=== PATIENT | male | born 1945 | race African-American/Black ===

== ENCOUNTER 2016-09-03 09:14 | Emergency (ER) | payer OTHER | END 2016-09-03 14:14 | disposition home or self-care (01) | LOC: ER1 09:14 | DX: T78.40XA Allergy, unspecified, initial encounter (principal); X58.XXXA Exposure to other specified factors, initial encounter | CPT/HCPCS: 82962; 96374; 96375; 99283; J1200; J2930 ==

== ENCOUNTER → 2020-08-23 | Outpatient (CLI) | payer OTHER ==
[~2020-08-23] MED LIST: ALTACE10 MG PO; ECOTRIN81 MG PO; GLUCOPHAGE500 MG PO; HYGROTON TAB 2525 MG PO; JANUVIA100 MG PO; LIPITOR TAB 2020 MG PO; MELOXICAM15 MG PO; OMEPRAZOLE20 M1 PO
== END ==
LOC: RAD 11:48
DX: M54.16 Radiculopathy, lumbar region (principal); M47.816 Spondylosis without myelopathy or radiculopathy, lumbar region
CPT/HCPCS: 72100

== ENCOUNTER → 2021-05-02 | Outpatient (CLI) | payer OTHER | LOC: EMI 08:00 | DX: M50.03 Cervical disc disorder with myelopathy, cervicothoracic region (principal); M47.10 Other spondylosis with myelopathy, site unspecified | CPT/HCPCS: 72141 ==

== ENCOUNTER 2021-10-04 21:52 | Inpatient (IN) | payer OTHER ==
[~2021-10-04] VITALS: Ht 185.4 cm; Wt 99.8 kg
[2021-10-04 22:33] LABS: HEMOGLOBIN 10.6 gm/dl (14.0-17.5); RED BLOOD COUNT 4.73 M/UL (4.20-5.50); WHITE BLOOD COUNT 7.8 K/UL (4.5-11.0)
[2021-10-05 08:09] LABS: HEMOGLOBIN 10.8 gm/dl (14.0-17.5); RED BLOOD COUNT 4.88 M/UL (4.20-5.50)
[2021-10-05 08:14] LABS: WHITE BLOOD COUNT 5.8 K/UL (4.5-11.0)
[2021-10-05] MEDS ORDERED: NAMENDA 5 MG TAB5 MG PO (13:04)
--- NOTE | 2021-10-06 | NUR ---
AT 2114 I WALKED OUT OF ANOTHER PTS ROOM TO SEE NATHALIA AND SECURITY OUTSIDE IN THE HALLWAY. ONCE I APPROACHED THEM, NATHALIA INFORMED ME THAT THE PT HAD FELL FORWARD AFTER THE PT SHOVED HIM. THE VITAL SIGNS WERE TAKING AND THE PT WAS SAT IN A CHAIR WITH GRIFFIN HOLDING PRESSURE ON HIS LACERATION TO HIS EYEBROW. I CALLED DR. BARILLAS AT 2118 TO INFORM HER OF THE SITUATION. SHE INFORMED ME THAT SHE WAS DOWNSTAIRS AND WOULD BE UPSTAIRS SHORTLY. ONCE SHE ARRIVED, SHE EXAMINED THE PATIENT AND WE DIRECTED HIM BACK TO HIS ROOM AND TO THE BED. ONCE THE PT WAS IN BED, DR. BARILLAS USED DERMABOND TO SEAL THE WOUND SHUT, THEN FURTHER EXAMINED THE PT TO SEE IF HE WAS HURT ANYWHERE ELSE. DURING THE FALL THE PT GLASSES WERE ON. ONCE HE FELL, WE ASSUME HIS GLASSES HIT THE FLOOR. IT BROKE THE HENDGE OF HIS GLASSES, WELL CRACKED THE LENSE ON ONE SIDE OF THE GLASSES. DR. BARILLAS HAD NO FURTHER ORDERS ON THE PT AT THIS TIME.
--- NOTE | 2021-10-06 00:12 | NUR ---
AT 2200 I ATTEMPTED TO PUT THE PT IN FALL PRECAUTIONS. PT REFUSES TO GET BACK IN BED AND TO WEAR A YELLOW GOWN. PT STILL HAS A SITTER AT THE BEDSIDE.
--- NOTE | 2021-10-06 06:12 | NUR ---
AT 0550 THE PATIENT BEGAN TO ACT HOSTILE. HE IS CONFUSED AND CANNOT BE REORIENTED AFTER MULTIPLE TRIES. THE PATIENT BELIEVES HE IS AT HOME AND TRIES TO WALK FREELY AROUND THE HOSPITAL HALLWAYS. THE NURSE WELL ANOTHER NURSE AND TECHS HAVE ATTEMPTED TO REDIRECT HIM TO HIS ROOM BUT THE PATIENT REFUSES. A CODE CJ WAS CALLED AT 0600 THE PATIENT BEGAN TO ACT MORE HOSTILE BY PUSHING THE SECURITY GAURD AND TECH. ONCE THE KARLI CORONA WAS ANNOUNCED, I CALLED DR. BARILLAS TO INFORM HER OF THE PATIENT CONDITION. SHE ORDERED 0.5MG OF ATIVAN IM ONCE. THE MEDICATION WAS ADMINISTERED AT 0610. THE PATIENT IS STILL PACING THE ROOM AND IS ACTING AGITATED. SECURITY IS PRESENT OUTSIDE THE ROOM.
--- NOTE | 2021-10-06 07:34 | NUR ---
PT BEING NON COMPLIANT AND VIOLANT AND AGGRESSIVE TOWARD STAFF. ORDER OBTAINED FROM DR. PEÑA FOR RESTRAINTS, RESTRAINTS APPLIED TO BOTH WRIST.
--- NOTE | 2021-10-06 10:09 | NUR ---
PERSONELL ITEMS PLACED IN BAGS WITH PT LABEL ABD PLACED IN MED ROOM. AKK ITEMS REMOVED FOR PT SAFTEY
--- NOTE | 2021-10-06 12:01 | NUR ---
LATE ENTRY FROM 1000 Q2 HOUR RESTRAINT CHECK ATTEMPTED TO TALK TO PT IN CALM AND REASSURING VOICE, PT REMAINS RESTLESS AND AGGITATED. SOFT RESTRAINTS IN PLACE TO BILATERAL WRIST. TWO FINGERS EASILY SLIDE BETWEEN PT WRIST AND THE CUFF RESTRAINT. CAP REFILL IN BILATERAL FINGER IS LESS THAN THREE SECONDS. PT WILL LAY BACK WHEN REDIRECTED, BUT DOES CONTINUE TO BE RESTLESS AND AGGETATED. PT FORGETS HIS LIMITATION KNOWS HIS NAME AND DR. BARILLAS, BUT DOES NOT KNOW WHERE HE IS YEAR OR THE SITUATION THAT HE IS IN. PT ERADJUSTED IN THE BED AT THIS TIME HAD PT TO ROTATE WRIST AND WIGGLE FINGERS TO PROMOTE CIRCULATION OFFERED TOLIETRY TO PT AND LIQUIDS FOR HYDRATION PT REFUSED TO USE THE RESTROOM AT THIS TIME, BUT DID DRINK WATER.
--- NOTE | 2021-10-06 12:24 | NUR ---
LATE ENTRY FROM 1200 RESTRAINT CHECK COMPLETE CIRCULATION NOTED IN EXTREMITES, PT USED RESTROOM AT THIS TIME WITH 600 CC NOTED OUT. PT REPOSTIONED AND OFFERED FOOD. PT ATE SMALL AMOUNT AT THIS TIME WILL CONTINUE TO ENCOURAGE PT TO EAT AND DRINK FLUIDS. NEW ORDER FROM DR. BARILLAS TO CONTINUE RESTRAINTS DUE TO PT STILL BECOMING AGGITATED AND RESTLESS PT IS STILL NOT ORIENTED TO OWN ABILITIES.
--- NOTE | 2021-10-06 16:14 | NUR ---
LATE ENTRY 1400 PT RESTRAINT CHECK COMPLETED PT STILL RESTLESS AGGITATIED AND TRYING TO GET OUT OF BED. CIRCUALTION CHECK COMPLETED, FLUIDS AND RESTROOM BREAK OFFERED TO PT. SOFT WRIST RESTRAINTS BILATTERALY PT STILL TRYING TO REMOVE RESTRAINTS. PT ALERT FROM TIME AND TIME NOT ORIENTED TO OWN ABILTY OR DATE, TIME, OR SITUATION. WILL CONTINUE TO ASSESS PT.
[2021-10-08 10:16] LABS: RED BLOOD COUNT 5.32 M/UL (4.20-5.50); WHITE BLOOD COUNT 6.8 K/UL (4.5-11.0)
[2021-10-09 06:47] LABS: HEMOGLOBIN 10.3 gm/dl (14.0-17.5); WHITE BLOOD COUNT 6.1 K/UL (4.5-11.0)
[2021-10-09 06:58] LABS: RED BLOOD COUNT 4.57 M/UL (4.20-5.50)
[2021-10-10 07:35] LABS: HEMOGLOBIN 10.7 gm/dl (14.0-17.5); RED BLOOD COUNT 4.83 M/UL (4.20-5.50); WHITE BLOOD COUNT 6.3 K/UL (4.5-11.0)
--- NOTE | 2021-10-11 02:33 | NUR ---
0100 PATIENT AGITATED. OUT OF ROOM WANDERING THE ANAYA WITH NURSE AND SITTER. ATTEMPTED TO ENTER OTHER PATIENTS WHEN. INCREASES AGITATION WITH REDIRECTION. PATIENT BEGAN YELLING "THIS IS MY HOUSE". SECURITY CALLED AND ON FLOOR. INSTRUCTIONAL TECHNOLOGY FACILITATOR NOTIFIED AND ON FLOOR. PATIENT EXITED AND BEGAN YELLING AND WAVING HANDS AT SECURITY. 0115 CODE OLSON CALLED. 0130 NOTIFIED OF CODE OLSON AND PATIENT BEHAVIOR. ORDER RECEIVED FOR 2 POINT WRIST RESTRAINTS. 0135 PATIENT PLACED IN BED. 0140 RESTRAINTS APPLIED. 0145 ATIVAN 0.5MG GIVEN IM TO RT DELTOID. 0155 NOTIFIED FOR FACE TO FACE EVALUATION OF PATIENT IN RESTRAINTS. 0200 ON FLOOR AND EVALUATED PATIENT. PATIENT ATTEMPTING TO GET OUT OF BED. [facility].
[2021-10-11] MEDS ORDERED: QUETIAPINE FUMA25 MG PO (09:40)
--- NOTE | 2021-10-11 14:11 | NUR ---
REPORT CALLED TO CAROLE AT [facility].
== END 2021-10-11 14:05 | disposition short-term general hospital (02) | DRG 884 ==
LOC: ER1 21:52 → CDU 10-05 01:34 → MED SURG 4 10-05 10:55
PROVIDERS: Internal Medicine; Student in an Organized Health Care Education/Training Program; ADMIT Family Medicine
DX: F03.91 Unspecified dementia, unspecified severity, with behavioral disturbance (principal); N39.0 Urinary tract infection, site not specified; G93.40 Encephalopathy, unspecified; Z20.822 Contact with and (suspected) exposure to COVID-19; E11.9 Type 2 diabetes mellitus without complications; M50.30 Other cervical disc degeneration, unspecified cervical region; M19.90 Unspecified osteoarthritis, unspecified site; M54.12 Radiculopathy, cervical region; E78.5 Hyperlipidemia, unspecified; S01.111A Laceration without foreign body of right eyelid and periocular area, initial encounter; W13.8XXA Fall from, out of or through other building or structure, initial encounter; Y93.02 Activity, running; Y92.239 Unspecified place in hospital as the place of occurrence of the external cause; I12.9 Hypertensive chronic kidney disease with stage 1 through stage 4 chronic kidney disease, or unspecified chronic kidney disease; N18.30 Chronic kidney disease, stage 3 unspecified; Z83.3 Family history of diabetes mellitus; Z80.9 Family history of malignant neoplasm, unspecified; Z82.3 Family history of stroke; Z82.49 Family history of ischemic heart disease and other diseases of the circulatory system; Z79.4 Long term (current) use of insulin
CPT/HCPCS: 36415; 70450; 71045; 80048; 80053; 81001; 82962; 85025; 85027; 93005; 96372; 96374; 96375; 99285; G0378; J0696; J2060; J3486; U0002